=== PATIENT | female | born 1945 ===

== ENCOUNTER 2020-11-05 09:15 | Inpatient (IN) | payer OTHER ==
[~2020-11-05] VITALS: Ht 149.9 cm; Wt 46.3 kg
[2020-11-05] MEDS ORDERED: ARICEPT10 MG PO (11:36)
[2020-11-05] MEDS ORDERED: NAMENDA XR28 MG PO (11:37)
[2020-11-05] MEDS ORDERED: FOLIC ACID0.8 M1 PO (11:38)
[2020-11-12] MEDS ORDERED: FOLIC ACID1 MG (10:52)
== END 2020-11-14 14:29 | disposition home or self-care (01) | DRG 740 ==
LOC: SURG 11-12 05:35 → O/R 11-12 05:35 → OB/GYN 11-12 05:35 → SURG 11-12 15:31
PROVIDERS: Surgery; ADMIT Obstetrics & Gynecology Gynecologic Oncology; ATTEND Obstetrics & Gynecology Gynecologic Oncology
PROC: 0UT74ZZ Resection of Bilateral Fallopian Tubes, Percutaneous Endoscopic Approach (ICD-10-PCS; 2020-11-12)
PROC: 07BC4ZZ Excision of Pelvis Lymphatic, Percutaneous Endoscopic Approach (ICD-10-PCS; 2020-11-12)
PROC: 0DBN4ZZ Excision of Sigmoid Colon, Percutaneous Endoscopic Approach (ICD-10-PCS; 2020-11-12)
PROC: 0TJB8ZZ Inspection of Bladder, Via Natural or Artificial Opening Endoscopic (ICD-10-PCS; 2020-11-12)
PROC: 0UT94ZZ Resection of Uterus, Percutaneous Endoscopic Approach (ICD-10-PCS; principal; 2020-11-12 07:00)
PROC: 0UT24ZZ Resection of Bilateral Ovaries, Percutaneous Endoscopic Approach (ICD-10-PCS; 2020-11-12 07:00)
DX: C54.1 Malignant neoplasm of endometrium (principal); C18.7 Malignant neoplasm of sigmoid colon; N80.5 Endometriosis of intestine; K57.30 Diverticulosis of large intestine without perforation or abscess without bleeding; D12.6 Benign neoplasm of colon, unspecified; I10 Essential (primary) hypertension; G30.9 Alzheimer's disease, unspecified; F02.80 Dementia in other diseases classified elsewhere, unspecified severity, without behavioral disturbance, psychotic disturbance, mood disturbance, and anxiety